=== PATIENT | female | born 1995 | race Caucasian/White ===

== ENCOUNTER 2016-09-18 06:42 | Inpatient (IN) | payer OTHER ==
[2016-09-18] VITALS (11 sets, daily range): BP systolic 99–122; BP diastolic 51–73
[~2016-09-18] VITALS: Ht 167.6 cm; Wt 81.6 kg
[~2016-09-18 06:42] MED LIST: FOLIC ACID0.4 MG PO; IRON325 MG PO; MOTRIN600 MG PO; MOTRIN800 MG PO; PRENATAL VITAM1 EAC1 PO; PRIMALEV PO
[2016-09-18 08:29] LABS: HEMATOCRIT 36.5 % (36.0-46.0); MCH 20.9 PG (29.0-34.0); MCHC 30.1 G/DL (30.0-36.0); MCV 69.4 FL (83-99); MEAN PLAT.VOLUME 9.7 uM^3 (9.5-12.4); PLATELET COUNT 228 K/uL (156-360); RBC DIS.WIDTH-CV 16.6 % (11.8-14.6); RBC DIS.WIDTH-SD 40.9 % (39-53); RED BLOOD COUNT 5.26 M/uL (3.80-5.20); WHITE BLOOD COUNT 14.3 K/uL (4.1-10.2)
[2016-09-18 08:39] LABS: EOSINOPHIL (%) 0.5 % (0-5); EOSINOPHIL COUNT 0.1 K/uL (0-0.3); IMMATURE GRANULOCYTE (%) 0.7 % (0.0-0.7); IMMATURE GRANULOCYTE COUNT 0.1 K/uL; LYMPHOCYTE COUNT 1.6 K/uL (1.0-2.8); MONOCYTE (%) 10.3 % (3-12); MONOCYTE COUNT 1.5 K/uL (0-0.8); NEUTROPHIL (%) 77.5 % (45-76); NEUTROPHIL COUNT 11.1 K/uL (1.8-6.4)
[2016-09-18] MEDS ORDERED: IBUPROFEN800 MG PO (09:35)
[2016-09-19 07:43] VITALS: BP 95/66
== END 2016-09-19 14:10 | disposition home or self-care (01) | DRG 775 ==
LOC: LDRP-OP 06:42 → 2WEST 06:43 → LDRP-OP 10-20 09:50
PROVIDERS: Midwife
DX: O70.0 First degree perineal laceration during delivery (principal); O66.0 Obstructed labor due to shoulder dystocia; O69.81X0 Labor and delivery complicated by cord around neck, without compression, not applicable or unspecified; Z3A.39 39 weeks gestation of pregnancy; Z37.0 Single live birth
CPT/HCPCS: 85025; C1755; J7120

== ENCOUNTER 2016-10-06 22:55 | Observation (INO) | payer OTHER ==
[~2016-10-06] VITALS: Ht 167.6 cm; Wt 72.4 kg
[~2016-10-06 22:55] MED LIST changes: +IBUPROFEN800 MG PO
[2016-10-06 23:14] LABS: HEMATOCRIT 34.2 % (36.0-46.0); MCH 20.9 PG (29.0-34.0); MCHC 30.1 G/DL (30.0-36.0); MCV 69.2 FL (83-99); RBC DIS.WIDTH-CV 17.6 % (11.8-14.6); RBC DIS.WIDTH-SD 43.2 % (39-53); RED BLOOD COUNT 4.94 M/uL (3.80-5.20); WHITE BLOOD COUNT 10.1 K/uL (4.1-10.2)
[2016-10-06 23:15] LABS: MEAN PLAT.VOLUME 9.1 uM^3 (9.5-12.4); PLATELET COUNT 390 K/uL (156-360)
[2016-10-06 23:21] LABS: CHLORIDE 111 mEq/L (99-109); POTASSIUM 4.1 mEq/L (3.7-5.4); SODIUM 141 mEq/L (136-147)
[2016-10-06 23:23] LABS: GLUCOSE 104 mg/dL (70-99)
[2016-10-06 23:25] LABS: ANION GAP 8 MEQ/L (2-14); TOTAL BILIRUBIN 0.6 mg/dL (0.0-1.0)
[2016-10-06 23:27] LABS: ALKALINE PHOSPHATASE 72 IU/L (3-129); GFR ESTIMATE (CALCULATED) > 59 mL/min/
[2016-10-06 23:28] LABS: UREA NITROGEN (BUN) 9 mg/dL (9-23)
[2016-10-06 23:37] LABS: QUANTITATIVE HCG < 4.0 MIU/ML
[2016-10-07 00:02] LABS: ADD MIUA? YES; BILIRUBIN NEGATIVE; BLOOD LARGE; COLOR YELLOW ((YELLOW)); GLUCOSE (STRIP) NEGATIVE; KETONES NEGATIVE; LEUKOCYTES MODERATE; NITRITE NEGATIVE; PROTEIN (STRIP) NEGATIVE; SPECIFIC GRAVITY 1.017 (1.000-1.030); UROBILINOGEN 0.2 MG/DL (0.2-1.0)
[2016-10-07 00:09] LABS: LIPASE 18 U/L (1.0-51.0)
[2016-10-07 00:09] LABS: BACTERIA RARE /HPF; EPITHELIAL CELLS RARE /HPF; MUCUS TRACE /LPF; RED BLOOD CELLS 30-40 /HPF (0-5); UCUL ADDED? NO; WHITE BLOOD CELLS 15-20 /HPF (0-5)
[2016-10-07 02:47] VITALS: BP 103/55
[2016-10-07 06:48] LABS: POINT-OF-CARE METER ID UU14188577
[2016-10-07 09:54] VITALS: BP 103/64
[2016-10-07 12:25] VITALS: BP 112/61
[2016-10-07] MEDS ORDERED: ENDOCET 5-3251 EACH PO (15:11)
[2016-10-07] MEDS ORDERED: HYDROCODON-ACE1 EA11 PO (15:13)
[2016-10-07 15:15] VITALS: BP 100/61
== END 2016-10-07 15:41 | disposition home or self-care (01) ==
LOC: EME 22:55 → 3EAST 10-07 00:57 → EDOF 10-07 00:57 → 3EAST 10-07 02:35
PROVIDERS: Surgery
PROC: 0DTJ0ZZ Resection of Appendix, Open Approach (ICD-10-PCS; principal; 2016-10-07)
DX: O99.63 Diseases of the digestive system complicating the puerperium (principal); K35.80 Unspecified acute appendicitis; K80.20 Calculus of gallbladder without cholecystitis without obstruction
CPT/HCPCS: 74177; 80053; 81003; 82948; 83690; 84702; 85027; 88304; G0378; J0330; J1100; J1170; J1335; J1885; J2250; J2405; J2710; J2765; J3010; J3480; J7030; J7042; J7050; S0020